=== PATIENT | male | born 1985 | race Caucasian/White ===

== ENCOUNTER 2020-12-21 19:44 | Emergency (ER) | payer MEDICAID, OTHER ==
[~2020-12-21] VITALS: Ht 170.2 cm; Wt 82.1 kg
[2020-12-21 19:54] VITALS: BP 121/92
--- NOTE | 2020-12-21 20:13 | NUR ---
PT W/C ASSISTED TO BED #5
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
[2020-12-21] MEDS ORDERED: KETOROLAC 30 MG/ML VIAL IM ONE (20:35)
[2020-12-21] MEDS ORDERED: IBUPROFEN 600 MG TAB PO ONE (20:55)
--- NOTE | 2020-12-21 21:11 | NUR ---
X-Ray at bedside.
[2020-12-21] MEDS ORDERED: NAPR-54 PO (21:51)
[2020-12-21] MEDS ORDERED: LOTC TP (21:51)
[2020-12-21 22:18] VITALS: BP 140/79
--- NOTE | 2020-12-21 22:18 | NUR ---
Patient discharged with v/s stable. Written and verbal after care instructions given and explained. Patient alert, oriented and verbalized understanding of instructions. Ambulatory with steady gait. All questions addressed prior to discharge. ID band removed. Patient advised to follow up with PMD. Rx of LOTRIMIN 1% AND NAPROSYN given. Patient educated on indication of medication including possible reaction and side effects. Opportunity to ask questions provided and answered.
== END 2020-12-21 22:18 | disposition home or self-care (01) ==
LOC: MED 19:44
DX: R07.89 Other chest pain (principal); B35.3 Tinea pedis; N48.1 Balanitis; F11.90 Opioid use, unspecified, uncomplicated; Z79.899 Other long term (current) drug therapy; Z98.890 Other specified postprocedural states; Z59.0 Homelessness
CPT/HCPCS: 71045; 73630; 99284

== ENCOUNTER 2021-08-07 14:40 | Emergency (ER) | payer MEDICAID, OTHER ==
[~2021-08-07 14:40] MED LIST: LOTC TP; NAPR-54 PO
--- NOTE | 2021-08-07 14:55 | NUR ---
CALLED X1. NO SHOW.
--- NOTE | 2021-08-07 14:57 | NUR ---
Simone huerta in [facility] - 08/07/21 at 1500 by [email or web address] CALLED X1. NO SHOW.
--- NOTE | 2021-08-07 15:06 | NUR ---
CALLED X2. NO SHOW.
--- NOTE | 2021-08-07 15:15 | NUR ---
CALLEDX3. NO ANSWERING
== END 2021-08-07 14:55 | disposition left against medical advice (07) ==
LOC: MED 14:40
DX: Z53.21 Procedure and treatment not carried out due to patient leaving prior to being seen by health care provider (principal)